=== PATIENT | male | born 1985 | race Caucasian/White ===

== ENCOUNTER 2019-11-20 09:42 | Emergency (ER) | payer BC, MEDICAID ==
[~2019-11-20] VITALS: Ht 182.9 cm; Wt 105.0 kg
[~2019-11-20 09:42] MED LIST: ALPR0.257 PO; ALPR1TAB2 PO; AMLO2.5T2 PO; ASPI-496 PO; CHOL2000 PO; CLOP75TA52 PO; DICL25TA PO; DULO30CA2 PO; FOLI0.4T2 PO; GABA-826 PO; GLYB1.252 PO; LEVO25TA4 PO; LOSA25TA2 PO; MAGN400T36 PO; OXYC20TA2 PO; OXYC5CAP2 PO; PANT20TA3 PO; TEST200V21 IM; TRAZ-137 PO; VENL37.52 PO
[2019-11-20] MEDS ORDERED: AMLO10TA8 PO (10:10)
[2019-11-20 10:12] VITALS: BP 167/115
--- NOTE | 2019-11-20 10:12 | NUR ---
ASSUMED CARE OF PATIENT IN ROOM 17. PT C/O LEFT UPPER CHEST PAIN THAT IS SHARP AND STABBING BEGINNING YESTERDAY THAT IS WORSE WITH COUGHING OR PALPATION. PT ALSO HAS C/O DIZZINESS AND BLURRED VISION AND LEFT HAND NUMBNESS.
--- NOTE | 2019-11-20 10:25 | NUR ---
NOTIFIED DR. LOGAN THAT PATIENT STATES HE HAS NOT TAKEN HIS BLOOD PRESSURE MED FOR 2 DAYS.
[2019-11-20] MEDS ORDERED: ACETAMINOPHEN 500 MG TABLET ONE (10:52)
[2019-11-20] MEDS ORDERED: IBUPROFEN 200 MG TABLET ONE (10:52)
[2019-11-20] MEDS ORDERED: ACETAMINOPHEN 500 MG TABLET PO ONE (11:00)
[2019-11-20] MEDS ORDERED: IBUPROFEN 600 MG TABLET PO ONE (11:00)
--- NOTE | 2019-11-20 11:17 | NUR ---
Patient given discharge instructions and they have confirmed that they understand the instructions. Patient ambulatory with steady gait.
== END 2019-11-20 11:18 | disposition home or self-care (01) ==
LOC: ED 11:01
DX: S29.011A Strain of muscle and tendon of front wall of thorax, initial encounter (principal); I10 Essential (primary) hypertension; Z90.49 Acquired absence of other specified parts of digestive tract; X58.XXXA Exposure to other specified factors, initial encounter; Y93.89 Activity, other specified; Y92.89 Other specified places as the place of occurrence of the external cause; Y99.8 Other external cause status
CPT/HCPCS: 93005; 99283